=== PATIENT | male | born 1935 | race Caucasian/White ===

== ENCOUNTER → 2019-10-20 | Outpatient (CLI) | payer MEDICARE ==
[~2019-10-20] MED LIST: ADULT LOW DOSE81 MG PO; ALEVE220 MG PO; ALLOPURINOL 10100 M1 PO; ALLOPURINOL 30300 M1; ALLOPURINOL 30300 M1 PO; AMLODIPINE BESY10 MG; ASA81BEC PO; ASPIR 8181 MG PO; ASPIRIN325; CALCIUM STOOL240 MG PO; CARDURA2 MG PO; CARDURA4 MG; CARDURA4 MG PO; CELEXA20 MG PO; CEPHALEXIN 500500 M3 PO; CIPROFLOXIN HC2.5 M1 OPHTHALMIC; COREG3.125 MG PO; CRESTOR20 MG PO; CRESTOR40 MG PO; DIAZEPAM 10 MG10 M1 PO; DIAZEPAM 5 MG5 MG PO; DULCOLAX STOOL100 MG PO; EFFIENT10 MG PO; ENDUR-ACIN500 MG PO; FINASTERIDE5 MG; FINASTERIDE5 MG PO; FISH OIL 1,0001 EAC5; FISH OIL 1,001000 M2 PO; FISH OIL OMEGA1 EAC2 PO; FLOMAX PO; FOSINOPRIL SODI40 M1 PO; IBUPROFEN 200200 M1; LEVITRA20 MG PO; LISINOPRIL20 MG PO; LISINOPRIL40 MG PO; LOPRESSOR 50 MG50 M1; LOPRESSOR 50 MG50 M1 PO; LOPRESSOR25 PO; MAGOX 400400 MG PO; NORVASC10 MG PO; OMEPRAZOLE20 M2; OMEPRAZOLE20 M2 PO; PEPCID40 MG PO; PLAVIX 75 MG TA75 M1 PO; PLAVIX 75 MG TA75 MG PO; PRILOSEC 20 MG20 MG PO; PROTONIX 20 MG20 M1 PO; SIMVASTATIN80 MG; SLO-NIACIN500 MG PO; TOPROL XL50 MG PO; XARELTO10 MG PO
--- NOTE | 2019-10-20 17:20 | CARDNUC ---
[place] [address] CARDIAC NUCLEAR IMAGING REPORT Name: PK MILLS Room: [facility]#: [id number] Admission: 10/20/19 Attend Phys: Perico Reyes, Discharge: Date of : 37 Date of Service: 10/20/19 1719 Report #: [id number] THIS REPORT FOR: cc: Noman Kamara Steve T. DO Liston, Michael J. MD [facility] ~ APPROVED REPORT Study performed: 10/20/2019 09:46:10 Exam: Nuclear Stress Test Indication: CAD s/p PCI Patient Location: Out-Patient Stress Tech: Roxanna Gutierrez Stress Nurse: Rosita Dinh R.N. Ht: 5 ft 9 in Wt: 165 lbs BSA: 1.90 m2 BMI: 24.36 Medical History Medical History: Angina, Arrhythmia, CAD s/p stent, CKD, Diabetes, HTN, Hyperlipidemia, SOB, LBBB, Knee replacement. Medications: Amlodipine, ASA 81 Mg, Plavix, Metoprolol, Rosuvastatin. Allergies: Doxazosin. Cardiac Risk Factors: Age, DM, HTN, Hyperlipidemia, SOB, CKD. Previous Cardiac Procedures: PCI Pretest Chest Pain Characteristics: No chest pain Exercise History: Sedentary Physical Disabilities: s/p knee replacement/pain. Meds Held (24 hrs): Metoprolol. Stress Test Details Stress Test: Pharmacologic stress testing performed using 0.4 mg of regadenoson per 5 mL given IV over 10 seconds. Reason for pharmacologic stress test: s/p knee replacement/pain.. HR Resting HR: 61 bpm Max Heart Rate (APMHR): 138 bpm Max HR Achieved: 94 bpm Target HR (85% APMHR): 117 bpm % of APMHR: 68 Recovery HR: 75 [place] [address] CARDIAC NUCLEAR IMAGING REPORT Name: PK MILLS Room: [facility]#: [id number] Admission: 10/20/19 Attend Phys: Perico Reyes, Discharge: Date of : 37 Date of Service: 10/20/19 1719 Report #: [id number] Resting BP: 178/80 mmHg Max BP: 166/70 mmHg ECG Resting ECG: Sinus Rhythm, LBBB Stress ECG: Sinus Rhythm, LBBB ST Change: None, Horizontal ST depression Arrhythmia: None Recovery ECG: Sinus Rhythm, LBBB Recovery Arrhythmia: None Clinical Reason for Termination: Completed protocol Stress Symptoms: Dyspnea Exercise duration: 00 min 00 sec Exercise capacity: 1.00 METs The patient tolerated Lexiscan infusion without significant cardiac symptoms. Nurse Comments An 83 year old male presented for a sitting Lexiscan r/t s/p PCI. Test well tolerated. Recovery unremarkable with PO caffeine, effective. Patient was escorted by staff to Nuclear Medicine for imaging. Patient was stable and stated he felt good at that time. Stress ECG Conclusion The baseline 12-lead EKG shows sinus rhythm with left bundle-branch block. EKGs obtained during and post skin infusion show sinus rhythm with left bundle-branch block. There were no significant stress-induced arrhythmias. NM EXAM: Myocardial Perfusion REST/STRESS Resting Data Rest SPECT myocardial perfusion imaging was performed in supine position 30 minutes following the intravenous injection of 11.5 mCi of Tc-99m Sestamibi. Time of rest injection: 08:00 The images were gated to evaluate regional wall motion and calculate left ventricular ejection fraction. Administration Route: IV Administration Site: [place] [address] CARDIAC NUCLEAR IMAGING REPORT Name: PK MILLS [id number] Admission: 10/20/19 Attend Phys: Perico Reyes, Discharge: Date of : 37 Date of Service: 10/20/19 1719 Report #: [id number] Pharmacologic stress test was performed by injecting Regadenoson 0.4 mg IV push followed by the intravenous injection of 34.7 mCi of Tc-99m Sestamibi. Time of stress injection: 09:45 Administration Route: IV Administration Site: Right AC Heart Rate at time of stress injection: 77 bpm. Gated Stress SPECT was performed 45 minutes after stress injection. The images were gated to evaluate regional wall motion and calculate left ventricular ejection fraction. Study Quality Study: Fair Artifact: Moderate Diaphragmatic artifact Study Data At rest, the left ventricular ejection fraction was 51%.. Post stress, the left ventricular ejection was 56%.. TID = 0.96. Perfusion Perfusion images obtained at rest and post Lexiscan stress show a large region of photopenia involving the basal to apical inferior wall. No reversible defects were identified. Wall Motion There is a septal wall motion abnormality noted likely due to bundle branch block. Global LV systolic function is preserved. Nuclear Conclusion ECG Findings: non-diagnostic Clinical Findings: negative for ischemia Nuclear Findings: negative for ischemia Exercise Capacity: not assessed Left Ventricular Function: preserved Perfusion images show a fixed defect of the inferior wall that is likely due to diaphragmatic attenuation artifact. Global LV systolic function appears to be fairly well-preserved. This is not a high risk study. <Conclusion> The baseline 12-lead EKG shows sinus rhythm with left bundle-branch block. EKGs obtained during and post skin [place] [address] CARDIAC NUCLEAR IMAGING REPORT Name: PK MILLS Room: [facility]#: [id number] Admission: 10/20/19 Attend Phys: Perico Reyes, Discharge: Date of : 37 Date of Service: 10/20/19 1719 Report #: [id number] with left bundle-branch block. There were no significant stress-induced arrhythmias. <ELECTRONICALLY SIGNED> By: Perico Reyes MD, FACC 10/20/191718 18 18 Perico Reyes MD, FACC /INF
== END ==
LOC: M.NUC 07:28
DX: I44.7 Left bundle-branch block, unspecified (principal); I25.118 Atherosclerotic heart disease of native coronary artery with other forms of angina pectoris; E11.22 Type 2 diabetes mellitus with diabetic chronic kidney disease; I12.9 Hypertensive chronic kidney disease with stage 1 through stage 4 chronic kidney disease, or unspecified chronic kidney disease; N18.9 Chronic kidney disease, unspecified; E78.5 Hyperlipidemia, unspecified; Z96.659 Presence of unspecified artificial knee joint; Z95.5 Presence of coronary angioplasty implant and graft

== ENCOUNTER 2020-10-02 12:49 | Emergency (ER) | payer MEDICARE ==
[~2020-10-02] VITALS: Ht 175.3 cm; Wt 73.9 kg
[~2020-10-02 12:49] MED LIST changes: -LOPRESSOR25 PO; +LOPRESSOR50 PO
[2020-10-02] MEDS ORDERED: ROCALTROL0.25 MCG PO (13:02)
[2020-10-02] MEDS ORDERED: NORVASC 2.5 MG2.5 M1 PO (13:02)
[2020-10-02] MEDS ORDERED: RENAL VITAMIN0.8 MG PO (13:03)
[2020-10-02] MEDS ORDERED: HYDROCODON-ACE1 EAC7 PO (15:33)
[2020-10-02 15:46] VITALS: BP 144/62
== END 2020-10-02 15:48 | disposition home or self-care (01) ==
LOC: M.ERS 12:49
DX: S70.02XA Contusion of left hip, initial encounter (principal); S80.02XA Contusion of left knee, initial encounter; S00.83XA Contusion of other part of head, initial encounter; R07.81 Pleurodynia; K21.9 Gastro-esophageal reflux disease without esophagitis; E78.00 Pure hypercholesterolemia, unspecified; I10 Essential (primary) hypertension; Z79.899 Other long term (current) drug therapy; Z79.82 Long term (current) use of aspirin; Z87.442 Personal history of urinary calculi; Z96.652 Presence of left artificial knee joint; W18.09XA Striking against other object with subsequent fall, initial encounter; Y93.89 Activity, other specified; Y92.89 Other specified places as the place of occurrence of the external cause; Y99.9 Unspecified external cause status